=== PATIENT | female | born 1970 | race Caucasian/White ===

== ENCOUNTER 2021-01-18 17:30 | Outpatient (CLI) | payer OTHER ==
[2014-04-29 06:47] VITALS: BMI 32.2
[~2021-01-18 17:30] MED LIST: CALAN SR240 MG PO; PRILOSEC20 MG PO; VASERETIC 10-251 TAB PO; WELLBUTRIN XL150 M1 PO
== END 2021-01-18 23:59 | disposition home or self-care (01) ==
LOC: D.MAMMO 17:30
PROVIDERS: ATTEND Family Medicine
DX: Z12.31 Encounter for screening mammogram for malignant neoplasm of breast (principal)